=== PATIENT | female | born 1945 | race Caucasian/White ===

== ENCOUNTER 2018-09-10 11:51 | Inpatient (IN) | payer MEDICARE ==
[~2018-09-10] VITALS: Ht 165.1 cm; Wt 75.5 kg
[2018-09-10 12:15] VITALS: BP 209/76
[2018-09-10 13:08] LABS: BASO % 1 % (0-3); EOS # 0.2 x10^3/uL (0.0-0.7); EOS % 3 % (0-3); HEMATOCRIT 39.6 % (36.0-47.0); HEMOGLOBIN 13.2 g/dL (12.0-15.5); LYMPH # 1.6 x10^3/uL (1.0-4.8); LYMPH % 22 % (24-48); MEAN CORPUSCULAR HEMOGLOBIN 30 pg (25-35); MEAN CORPUSCULAR HGB CONC 33 g/dL (31-37); MEAN CORPUSCULAR VOLUME 90 fL (79-100); MONO # 0.7 x10^3/uL (0.0-1.1); MONO % 9 % (0-9); NEUT # 4.7 x10^3uL (1.8-7.7); NEUT % 65 % (31-73); PLATELET COUNT 190 x10^3/uL (140-400); RED BLOOD COUNT 4.41 x10^6/uL (3.50-5.40); RED CELL DISTRIBUTION WIDTH 14.6 % (11.5-14.5); WHITE BLOOD COUNT 7.2 x10^3/uL (4.0-11.0)
[2018-09-10 13:10] VITALS: BP 176/74
[2018-09-10 13:32] LABS: ALBUMIN 3.1 g/dL (3.4-5.0); ALBUMIN/GLOBULIN RATIO 0.9 (1.0-1.7); CALCIUM 9.1 mg/dL (8.5-10.1); CREATININE 0.8 mg/dL (0.6-1.0); GFR 70.5; POTASSIUM 4.1 mmol/L (3.5-5.1); TOTAL BILIRUBIN 0.6 mg/dL (0.2-1.0); TOTAL PROTEIN 6.4 g/dL (6.4-8.2)
--- NOTE | 2018-09-10 13:39 | EKG ---
[address] [address] Test Date: 2018-09-10 Test Time: 12:54:40 Pat Name: ERICA HOPKINS Department: Room: 121 A Gender: F [employer]: : [id number] Requested By: RAHEEM VARGAS Order Number: [id number] Reading MD: Igor Vazquez MD Measurements Intervals [place] Rate: 62 P: 41 WV: 140 QRS: -11 QRSD: 82 T: 34 QT: 430 QTc: 439 Interpretive Statements SINUS RHYTHM Electronically Signed On 09-12-2018 9:50:03 CDT by Igor Vazquez MD
[2018-09-10] MEDS ORDERED: IBUP200T58 PO (13:48)
[2018-09-10] MEDS ORDERED: IBUP1TAB12 PO (13:48)
[2018-09-10] MEDS ORDERED: PSYL1PAC7 PO (13:48)
--- NOTE | 2018-09-10 15:12 | RAD ---
Portable chest x-ray without comparison for cough. FINDINGS: No pneumothorax, pleural effusion, focal infiltrate, or congestive heart failure is identified. There are bands of scarring or atelectasis particularly in the right middle and lower lung. There is also fine interstitial thickening involving both lungs uniformly, which may reflect atypical infectious or inflammatory interstitial lung disease. Heart size is mildly enlarged. No significant osseous anomalies. IMPRESSION: 1. Fine interstitial thickening diffusely throughout both lungs, which is nonspecific, but can signify atypical infectious or inflammatory interstitial lung disease. No definite focal infiltrates. Electronically signed by: Marcellus Shukla MD (09/10/2018 3:09 PM) [id number]
== END 2018-09-10 15:10 | disposition short-term general hospital (02) | DRG 316 ==
LOC: 1 SOUTH 11:51
PROVIDERS: ADMIT Family Medicine; ATTEND Family Medicine
DX: R01.2 Other cardiac sounds (principal); R07.89 Other chest pain; R06.09 Other forms of dyspnea; R51 Headache; R60.1 Generalized edema; R94.31 Abnormal electrocardiogram [ECG] [EKG]; Z87.891 Personal history of nicotine dependence; Z80.9 Family history of malignant neoplasm, unspecified; Z82.49 Family history of ischemic heart disease and other diseases of the circulatory system; Z79.899 Other long term (current) drug therapy
CPT/HCPCS: 36415; 71045; 80053; 80061; 82550; 83880; 84484; 85025; 85379; 93005

== ENCOUNTER → 2018-09-19 | Outpatient (CLI) | payer MEDICARE ==
[2018-09-10 13:10] VITALS: BP 176/74
[~2018-09-19] MED LIST: IBUP1TAB12 PO; IBUP200T58 PO; PSYL1PAC7 PO
--- NOTE | 2018-09-19 17:20 | RAD ---
Left Upper Extremity Venous Doppler Ultrasound Indication: Swelling of the left arm. Comparison: None. Procedure: Color Doppler, spectral Doppler, and grayscale imaging was performed of the upper extremity. Imaged veins were jugular, subclavian, axillary, brachial, radial, ulnar, and basilic veins. Left cephalic vein is not visualized. Findings: The visualized veins are patent and demonstrate normal Doppler flow dynamics. There is no evidence of upper extremity venous thrombosis. Impression: No evidence of left upper extremity deep venous thrombosis. Electronically signed by: Edgardo Gramajo MD (09/19/2018 5:17 PM) [facility]
== END | disposition home or self-care (01) ==
LOC: US 09:38
PROVIDERS: ATTEND Internal Medicine Cardiovascular Disease
DX: R22.32 Localized swelling, mass and lump, left upper limb (principal)
CPT/HCPCS: 93971